=== PATIENT | female | born 1995 | race Caucasian/White ===

== ENCOUNTER 2019-08-06 10:29 | Outpatient (CLI) | payer OTHER, SELFPAY ==
[2019-08-06 10:55] LABS: Hematocrit 39.3 % (35.0-49.0); Hemoglobin 13.7 g/dL (12.0-15.0); Mean Corpuscular HGB Conc 34.9 g/dL (32.0-36.0); Mean Corpuscular Hemoglobin 29.6 pg (27.0-31.0); Mean Corpuscular Volume 84.9 fL (78.0-102.0); Mean Platelet Volume 9.9 fl (9.2-11.8); Platelet Count Result 236 K/mm3 (150-420); Red Blood Count 4.63 M/mm3 (4.20-5.40); Red Cell Distribution Width 12.2 % (11.6-14.4); White Blood Count 6.4 K/mm3 (4.8-10.8)
[2019-08-06 11:29] LABS: Anion Gap 14.6 mmol/L (7-16); Blood Urea Nitrogen 18 mg/dL (7-18); Calcium 9.4 mg/dL (8.5-10.1); Carbon Dioxide 23 mmol/L (21-32); Chloride 105 mmol/L (98-108); Estimated Glomerular Filt Rate 58; Glucose 84 mg/dL (70-99); Osmolality Calculated 288 mOsm/kg (285-295); Potassium 3.6 mmol/L (3.5-5.1); Sodium 139 mmol/L (136-145)
== END 2019-08-06 10:30 | disposition home or self-care (01) ==
LOC: CHSLAB 10:32
PROVIDERS: PCP Family Medicine; Visit Provider Family Medicine
DX: Z00.00 Encounter for general adult medical examination without abnormal findings (principal)
CPT/HCPCS: 36415; 80048; 85027

== ENCOUNTER 2020-11-19 15:43 | Outpatient (CLI) | payer OTHER, SELFPAY ==
[2020-11-19 17:33] LABS: Hepatitis B Surface Antigen Negative (Negative)
[2020-11-19 17:48] LABS: HIV 1/2 Ab P24 Ag Result Negative (Negative)
[2020-11-19 17:51] LABS: Hepatitis C Virus Antibody Negative (Negative)
[2020-11-23 08:26] LABS: Rapid Plasma Reagin Non-Reactive (NonReactive)
[2020-11-25 12:04] LABS: HSV 1 IgM Screen Negative (Negative)
[2020-11-25 12:05] LABS: HSV 2 IgM Screen Negative (Negative)
== END 2020-11-19 15:44 | disposition home or self-care (01) ==
PROVIDERS: PCP Family Medicine; Visit Provider Student in an Organized Health Care Education/Training Program
DX: Z11.3 Encounter for screening for infections with a predominantly sexual mode of transmission (principal)
CPT/HCPCS: 36415; 86592; 86695; 86696; 86703; 86803; 87340; G0432

== ENCOUNTER 2021-01-06 00:41 | Day surgery (SDC) | payer OTHER, SELFPAY ==
[2021-01-03 17:05] VITALS: BMI 25.8
[2021-01-06] VITALS (9 sets, daily range): BP systolic 106–134; BP diastolic 54–92; PULSE 57–81; RESP 14–20; TEMP 36.3–37.3; O2SAT 99–100
--- NOTE | 2021-01-06 07:22 | P.HP_ITS ---
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 Gender identity (if verbalized by the patient): Female Sexual Orientation (if Verbalized by the Patient): Straight or Heterosexual Spiritual care concerns: No Meds Home Medications and Allergies Home Medications Medication Instructions Recorded Confirmed Type ibuprofen 200 mg capsule 200 mg PO Q6H PRN 11/19/20 01/03/21 History valacyclovir 500 mg tablet 500 mg PO DAILY #90 tablet 12/01/20 01/03/21 Rx Allergies Allergy/AdvReac Type Severity Reaction Status Date / Time No Known Allergies Allergy Verified 11/19/20 14:57 Assessment and Plan Assessment and plan (1) Impacted teeth with abnormal position: Code(s): K01.1 - Impacted teeth Status: Acute Assessment and Plan: impacted/uncleansable/painful 1,16,17,32. SR 1,16,17,32
--- NOTE | 2021-01-06 07:22 | WPDHPUPDATE1 ---
History and Physical Update Update Date/Time: 01/06/21 07:22 History and Physical has been reviewed, including an updated exam of the patient. There are NO changes in the patient's condition. Risks, benefits, and alternatives have been discussed and questions answered. Patient agrees to proceed with procedure.
--- NOTE | 2021-01-06 08:10 | WPDANESEPPF ---
Anes - Initial Pre Proc Eval Procedure: Operation Date: 01/06/21 09:30 Proposed Procedures p Extraction Four Impacted [place] Teeth - Sukumar Bolden DMD Date/Time: 01/06/21 08:10 Surgeon: Sukumar Bolden DMD Pre Op Diagnosis: impacted wisdom teeth #1,16,17,32 Patient Data Age: 25 Gender: F Height: 1.65 m Weight: 70.5 kg Allergies Allergy/AdvReac Type Severity Reaction Status Date / Time No Known Allergies Allergy Verified 11/19/20 14:57 Home Medications Medication Instructions Recorded Confirmed Type ibuprofen 200 mg capsule 200 mg PO Q6H PRN 11/19/20 01/03/21 History valacyclovir 500 mg tablet 500 mg PO DAILY #90 tablet 12/01/20 01/03/21 Rx Patient hx anesthesia problems: none Family hx anesthesia problems: none PMFSH Past Medical History Medical History HSV (herpes simplex virus) infection Type 2 Surgical History Surgical History No history of previous surgery Family History Family History Mother Hypothyroidism Anxiety and depression Grandparent Lymph node cancer Social History Social History Smoking status: Never smoker Alcohol intake: current Substance use: never Living arrangements: with family 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 Gender identity (if verbalized by the patient): Female Sexual Orientation (if Verbalized by the Patient): Straight or Heterosexual Spiritual care concerns: No Anes - Eval Final PreProcedure Day of Procedure 01/06/21 08:10 Patient weight: normal Heart: regular rate and rhythm Lungs: clear to auscultation Airway: Mallampati scale class II Neurological: alert and oriented Last oral intake: >/= 8 hours ASA classification: I Emergent: no Anesthetic plan: proceed Anesthesia type and monitoring: general ETT and standard monitoring Informed Consent: The patient's anesthetic plan and its attendant risks and benefits were discussed with the patient/family/POA. Questions were solicited and answers provided to the satisfaction of the patient/family/POA.
[2021-01-06] MEDS: LACTATED RINGERS 1,000 ML 30 ML IV CONT (08:19)
[2021-01-06] MEDS: OXYMETAZOLINE HCL 0.05% NAS 15 ML BTL (*BKC) 1 SPRAY NASAL (09:10)
[2021-01-06] MEDS: LIDOCAINE 2%-EPI (FOR DENTAL BLOCK) 1.7 ML CARTRIDGE INFILTRATE (09:12)
--- NOTE | 2021-01-06 09:36 | PM.OP ---
Procedure Note - Brief Procedure Note - Brief Date of procedure: 01/06/21 Pre-op diagnosis: impacted wisdom teeth #1,16,17,32 Surgeon: Sukumar Bolden DMD Preoperative diagnosis impacted and uncleansable teeth numbers 06/12/2016 and 32 postop diagnosis same procedure surgical removal of teeth #[id number]. Anesthesia general anesthesia and 6cc of 2% lidocaine with 1 100,000 epinephrine. Estimated blood loss 5cc. Complications none. Patient was encountered in the operating room in the care of the Anesthesia Service who induced general anesthetic. patient was draped in the usual manner for an intraoral surgical procedure. Oral cavity suctioned free of debris and throat pack placed. Local anesthetic administered. Fifteen blade was used make a third molar incision area of tooth 1. A full-thickness flap was made to the buccal. Tooth was then removed using a ring forceps technique without complication with minimal ostectomy. Socket curetted free of debris and irrigated copious amounts of sterile saline. Attention was turned to the area of number 16 were 3rd molar incision was made in the full-thickness flap was elevated to the buccal. Bone overlying the tooth was removed removed using elevator and the tooth was removed using elevator and forceps technique without complication. Second curetted free of debris and irrigated copious amount sterile saline. Attention was turned to the area 17. Where a 3rd molar incision was made and a full-thickness flap was elevated to the buckle. Bone overlying the tooth was removed and the tooth was sectioned and removed using alligator forceps technique without complication. Secured free of debris and irrigated with copious amount sterile saline. Gingival tissues reapproximated using 4-0 chromic gut suture in interrupted fashion. Attention was turned to the area of number 32 which was extracted similar fashion. Oral cavity was suctioned free of debris and throat pack removed. Gauze packs placed. Care the patient Transferred to the Anesthesia Service and the patient transferred to recovery room in stable condition.
[2021-01-06] MEDS: oxyCODONE HCL (*CRX) 5 MG TAB IR PO (11:21)
[2021-01-06] MEDS: ONDANSETRON HCL ODT 4 MG TABLET PO (12:02)
--- NOTE | 2021-01-06 14:31 | SUR.PHASEII ---
1115 NO PRESCRIPTIONS GIVEN TO PATIENTS PRIOR TO SURGERY AND NONE LEFT HERE FOR PATIENT. DR. ADAME'S OFFICE CALLED; THEY STATED THEY WOULD SEND IN PRESCRIPTIONS ELECTONICALLY TO OFFICE.
== END 2021-01-06 11:50 | disposition home or self-care (01) ==
PROVIDERS: PCP Family Medicine; Visit Provider Dentist
PROC: (CPT 41899; principal; 2021-01-06 09:30)
DX: K01.1 Impacted teeth (principal); B00.9 Herpesviral infection, unspecified
CPT/HCPCS: 41899 ×4; A9270; J1100; J1940; J2250; J2405; J2704; J7120

== ENCOUNTER 2022-01-02 11:43 | Outpatient (CLI) | payer OTHER, SELFPAY ==
--- NOTE | ~2022-01-02 | US_ITS ---
EXAMINATION: US pelvic complete w TV DATE: 01/02/2022 12:25 INDICATION: IUD assessment Comparison:No prior studies for comparison. TECHNIQUE: Multiple transabdominal and endovaginal sonographic images of the pelvis performed. FINDINGS: The uterus measures 7.6 x 3.8 x 4.2 cm. There is an IUD present in the endometrium in expec april position. The endometrial complex measures 6 mm. The right ovary measures 4.9 x 4.2 x 4.1 cm and the left ovary measures 3.7 x 2.6 x 3.7 cm. There is a right ovarian cyst measuring 4 x 3.9 x 3.5 cm There are small follicles in each ovary. Normal doppl er signal in both ovaries. There is free fluid in the pelvis. There are no abnormal masses seen on either side. IMPRESSION: 1. Right ovarian cyst measuring 4 cm maximum dimension. 2: IUD in expected position in the endometrium. Reviewed, dictated and finalized at location A.
== END 2022-01-02 11:44 | disposition home or self-care (01) ==
PROVIDERS: PCP Family Medicine; Visit Provider Obstetrics & Gynecology
DX: T83.32XA Displacement of intrauterine contraceptive device, initial encounter (principal); T83.9XXA Unspecified complication of genitourinary prosthetic device, implant and graft, initial encounter; N83.201 Unspecified ovarian cyst, right side
CPT/HCPCS: 76830; 76856

== ENCOUNTER 2022-06-29 14:36 | Outpatient (CLI) | payer OTHER, SELFPAY ==
--- NOTE | ~2022-06-29 | US_ITS ---
EXAMINATION: US pelvic complete w TV DATE: 06/29/2022 16:04 INDICATION: Unspecified ovarian cyst, unspecified side. TECHNIQUE: Multiple transabdominal and transvaginal sonographic images of the pelvis were obtained. COMPARISON: Ultrasound 01/02/2022 FINDINGS: TRANSABDOMINAL ULTRASOUND: The uterus measures 8.7 x 3.3 x 5.3 cm. There is physiologic free fluid in the pelvis. TRANSVAGINAL ULTRASOUND: The endometrial complex measures 5 mm in thickness. There is an intrauterine device in expected posit ion. The right ovary measures 3.8 x 2.9 x 2.7 cm. The left ovary measures 2.4 x 2.3 x 3.2 cm. There i s normal vascular flow in the ovaries. IMPRESSION: 1. Normal pelvis. 2. Intrauterine device in expected position. Reviewed, dictated and finalized at location A. [employer] ASSOCIATE
== END 2022-06-29 14:37 | disposition home or self-care (01) ==
LOC: ANHIMG 14:40
PROVIDERS: PCP Family Medicine; Visit Provider Obstetrics & Gynecology
DX: N83.209 Unspecified ovarian cyst, unspecified side (principal)
CPT/HCPCS: 76830; 76856

== ENCOUNTER 2023-06-08 16:34 | Outpatient (CLI) | payer OTHER, SELFPAY ==
[2023-06-08 17:16] LABS: Basophils Percent Auto 0.3 % (0.2-1.2); Eosinophils Absolute Auto 0.2 K/mm3 (0-0.3); Eosinophils Percent Auto 1.6 % (0-4.4); Hematocrit 41.3 % (37.0-47.0); Hemoglobin 13.5 g/dL (12.0-15.0); Immature Granulocyte Absolute 0.04 K/mm3 (0.00-0.031); Immature Granulocyte Percent A 0.4 % (0-0.5); Lymphocytes Absolute Auto 1.84 K/mm3 (0.9-3.2); Lymphocytes Percent Auto 19.4 % (18.3-44.2); Mean Corpuscular HGB Conc 32.7 g/dl (32-36); Mean Corpuscular Hemoglobin 29.7 pg (26-34); Mean Platelet Volume 10.2 fl (7.4-10.4); Monocytes Absolute Auto 0.7 K/mm3 (0.1-0.6); Monocytes Percent Auto 7.4 % (2.6-8.5); Neutrophils Absolute Auto 6.7 K/mm3 (1.3-6.7); Neutrophils Percent Auto 70.9 % (45.5-73.1); Platelet Count Result 227 k/mm3 (150-375); Red Blood Count 4.54 M/mm3 (4.2-5.4); Red Cell Distribution Width 12.7 % (11.5-14.5); White Blood Count 9.5 K/mm3 (4.5-10.0)
[2023-06-08 18:11] LABS: Hepatitis B Surface Antigen Negative (Negative); Rubella IgG Antibody 23.6 IU/ML
[2023-06-08 18:14] LABS: HIV 1/2 Ab P24 Ag Result Negative (Negative)
[2023-06-11 10:06] LABS: Rapid Plasma Reagin Non-Reactive (NonReactive)
[2023-06-12 11:38] LABS: CMV IgG Antibody <0.60 U/mL (<0.60)
[2023-06-19 10:48] LABS: CF Result NEGATIVE (NEGATIVE); SMA 2.0 RISK VARIANT NOT DETECTED
[2023-06-25 14:15] LABS: SMA Results Received Yes
== END 2023-06-08 16:35 | disposition home or self-care (01) ==
LOC: ANHLAB 16:35
PROVIDERS: PCP Family Medicine; Visit Provider Student in an Organized Health Care Education/Training Program
DX: N91.2 Amenorrhea, unspecified (principal)
CPT/HCPCS: 36415; 81220; 81329; 84702; 85025; 86592; 86644; 86703; 86747; 86762; 86787; 86850; 86900; 86901; 87086; 87340; G0432

== ENCOUNTER 2023-06-15 14:46 | Outpatient (CLI) | payer OTHER, SELFPAY ==
--- NOTE | ~2023-06-15 | US_ITS ---
EXAMINATION: US OB <=14 wk fetus w TV DATE: 06/15/2023 15:43 INDICATION: First trimester dating TECHNIQUE: Real-time pelvic transabdominal and transvaginal ultrasound was performed. COMPARISON: None. FINDINGS: The uterus measures 10.3 x 7.3 x 10 cm. There is an intrauterine gestational sac. There is a 2.9 x 2.4 x 0.5 cm hypoechoic area adjacent to the gestational sac A yolk sac is identified. heart motion is identified measuring 168 beats per minute (bpm) by M-mode Doppler. The crown ru mp length measures 2.8 cm, which correlates with an estimated gestational age of 9 weeks and 4 day(s) (+/-) 6 day(s). The right ovary measures 4.8 x 3 x 2.1 cm. The left ovary measures 3.6 x 1.9 x 2.4 cm. There is siddharth l vascular flow in the ovaries. There is no free fluid in the pelvis. IMPRESSION: 1. Live intrauterine with an estimated gestational age of 9 weeks and 4 day(s) (+/-) 6 day( s) and an estimated delivery date of 01/14/2024. 2. Subchorionic hematoma. Reviewed, dictated and finalized at location F. [employer] IMPRESSION: 1. Live intrauterine with an estimated gestational age of 9 weeks and 4 day(s) (+/-) 6 day(s) and an estimated delivery date of 01/14/2024. 2. Subchorionic hematoma.
== END 2023-06-15 14:47 | disposition home or self-care (01) ==
PROVIDERS: PCP Family Medicine; Visit Provider Student in an Organized Health Care Education/Training Program
DX: N91.2 Amenorrhea, unspecified (principal)
CPT/HCPCS: 76801; 76817

== ENCOUNTER 2023-08-21 16:18 | Outpatient (CLI) | payer OTHER, SELFPAY ==
--- NOTE | ~2023-08-21 | US_ITS ---
EXAMINATION: US OB /maternal detail DATE: 08/21/2023 17:21 INDICATION: Abdominal swelling TECHNIQUE: Multiple obstetric sonographic images performed. FINDINGS: Ultrasound dated 06/25/2023. There is a single living fetus in vertex presentation. The placenta is posterior without placenta pr evia. Amniotic fluid volume is normal. cardiac activity and movement is noted with a heart rate of 144 beats per minute. The following anatomy was identified as normal: 4 chamber heart 3 vessel cord cord insertion kidneys urinary bladder stomach spine diaphragm ventricles cisterna magna cerebellum The following biometric data were obtained: BPD: 45mm corresponds to gestational age 19 weeks 4 days. Head circumference: 175 mm corresponds to gestational age 20 weeks 0 days. Abdominal circumference: 136 mm corresponds to gestational age 19 weeks 1 days. Femur length: 33 mm corresponds to gestational age 20 weeks 3 days. Head circumference to abdominal circumference ratio: 1.28 (normal range for expected gestational age is 1.08-1.26). Estimated weight: 309 grams +/- 46 grams using Hadlock method. IMPRESSION: 1: Single living intrauterine with an estimated gestational age of 19weeks 1days by initial ultrasound measurements, with an EDC of 01/14/2024 in vertex presentation. 2. Normal survey. Reviewed, dictated and finalized at location B. IMPRESSION: 1: Single living intrauterine with an estimated gestational age of 19 weeks 1days by initial ultrasound measurements, with an EDC of 01/14/2024 in rob gina presentation. 2. Normal survey.
== END 2023-08-21 16:19 | disposition home or self-care (01) ==
LOC: ANHIMG 16:19
PROVIDERS: PCP Family Medicine; Visit Provider Obstetrics & Gynecology
DX: Z34.92 Encounter for supervision of normal pregnancy, unspecified, second trimester (principal); Z3A.19 19 weeks gestation of pregnancy
CPT/HCPCS: 76805

== ENCOUNTER 2023-10-19 10:17 | Outpatient (CLI) | payer OTHER, SELFPAY ==
[2023-10-19 11:36] LABS: Basophils Percent Auto 0.2 % (0.2-1.2); Eosinophils Absolute Auto 0.1 K/mm3 (0-0.3); Eosinophils Percent Auto 0.5 % (0-4.4); Hemoglobin 12.5 g/dL (12.0-15.0); Immature Granulocyte Absolute 0.11 K/mm3 (0.00-0.031); Lymphocytes Absolute Auto 1.14 K/mm3 (0.9-3.2); Lymphocytes Percent Auto 10.3 % (18.3-44.2); Mean Corpuscular HGB Conc 33.8 g/dl (32-36); Mean Corpuscular Hemoglobin 32.1 pg (26-34); Mean Corpuscular Volume 94.9 fl (80-100); Monocytes Absolute Auto 0.6 K/mm3 (0.1-0.6); Monocytes Percent Auto 5.1 % (2.6-8.5); Neutrophils Absolute Auto 9.2 K/mm3 (1.3-6.7); Neutrophils Percent Auto 82.9 % (45.5-73.1); Platelet Count Result 180 k/mm3 (150-375); Red Cell Distribution Width 12.5 % (11.5-14.5); White Blood Count 11.1 K/mm3 (4.5-10.0)
[2023-10-19 11:53] LABS: Glucose 1 Hour PP 50gm Dose 99 mg/dL
[2023-10-19 12:28] LABS: HIV 1/2 Ab P24 Ag Result Negative (Negative)
== END 2023-10-19 10:18 | disposition home or self-care (01) ==
PROVIDERS: PCP Family Medicine; Visit Provider Obstetrics & Gynecology
DX: Z34.90 Encounter for supervision of normal pregnancy, unspecified, unspecified trimester (principal)
CPT/HCPCS: 36415; 82947; 85025; 86703; G0432

== ENCOUNTER 2023-11-12 16:46 | Outpatient (CLI) | payer OTHER, SELFPAY ==
[2023-11-12 17:29] LABS: Appearance Urine Clear (Clear); Bacteria Urine 3+ /hpf; Bilirubin Urine Negative (Negative); Blood Urine Negative (Negative); Color Urine Yellow (Yellow); Glucose Urine UA Negative (Negative); Ketones Urine Negative (Negative); Leukocyte Esterase Ur 1+ LEU/UL (Negative); Nitrate Urine Negative (Negative); Non Pathogenic Casts 0-2; Protein Urine Negative (Negative); RBC Urine 0-2 /hpf (0-2); Specific Grav Ur 1.022 (1.001-1.035); Squamous Epithelial Cell Urine Few /hpf (Few)
[2023-11-12 17:36] LABS: Add Urine Microscopic? YES
== END 2023-11-12 17:52 | disposition home or self-care (01) ==
PROVIDERS: PCP Family Medicine; Visit Provider Obstetrics & Gynecology
DX: Z34.90 Encounter for supervision of normal pregnancy, unspecified, unspecified trimester (principal); Z3A.00 Weeks of gestation of pregnancy not specified
CPT/HCPCS: 81001; 87086; 87088

== ENCOUNTER 2023-12-19 13:58 | Outpatient (CLI) | payer OTHER, SELFPAY ==
--- NOTE | ~2023-12-19 | US_ITS ---
EXAMINATION: US OB follow up DATE: 12/19/2023 14:31 INDICATION: Encounter for supervision of normal during third trimester TECHNIQUE: Real-time ultrasound of the pelvis was performed. The interpreting radiologist was not pre sent for the study. COMPARISON: None. FINDINGS: There is a single living fetus in vertex presentation. The placenta is on the maternal left and not low-lying. heart rate is 124 beats per minute (bpm). The amniotic fluid index is 14.4 cm, whic h is normal (5th%-95%: 7.7-24.9 cm at 36 weeks estimated gestational age). The following biometric data were obtained: BPD: 8.8 cm -> 35 weeks 4 days Head circumference: 34.5 cm -> 39 weeks 6 days Abdominal circumference: 32.4 cm -> 36 weeks 2 days Femur length: 7.1 cm -> 36 weeks 4 days These measurements are concordant. Head circumference to abdominal circumference ratio: 1.06 (normal range 0.92-1.05). Estimated weight: 2995 g (+/-) 449 g or 6 lbs. 10 oz. (+/-) 16 oz. IMPRESSION: 1. Single living fetus in vertex presentation with heart rate of bpm. 2. Normal amniotic fluid index of 14.4 cm. 3. Estimated weight is 63rd percentile by Hadlock criteria when 01/14/2024 is used as the estima april date of delivery (OMA). Please correlate with clinical information or earlier ultrasounds for mos t accurate OMA. Reviewed, dictated and finalized at location A. IMPRESSION: 1. Single living fetus in vertex presentation with heart rate of bpm. 2. Normal amniotic fluid index of 14.4 cm. 3. Estimated weight is 63rd percentile by Hadlock criteria when 01/14/2024 is used as the estimated date of delivery (OMA). Please correlate with clinica l information or earlier ultrasounds for most accurate OMA.
== END 2023-12-19 13:59 | disposition home or self-care (01) ==
LOC: ANHIMG 14:01
PROVIDERS: PCP Family Medicine; Visit Provider Obstetrics & Gynecology
DX: Z34.90 Encounter for supervision of normal pregnancy, unspecified, unspecified trimester (principal); Z3A.00 Weeks of gestation of pregnancy not specified
CPT/HCPCS: 76816

== ENCOUNTER 2023-12-19 16:58 | Outpatient (CLI) | payer OTHER, SELFPAY ==
[2023-12-19 17:30] VITALS: BP 135/75; PULSE 81
[2023-12-19 17:35] LABS: Basophils Percent Auto 0.3 % (0.2-1.2); Eosinophils Absolute Auto 0.1 K/mm3 (0-0.3); Eosinophils Percent Auto 0.9 % (0-4.4); Hematocrit 38.1 % (37.0-47.0); Hemoglobin 12.9 g/dL (12.0-15.0); Immature Granulocyte Absolute 0.12 K/mm3 (0.00-0.031); Immature Granulocyte Percent A 1.1 % (0-0.5); Lymphocytes Absolute Auto 1.49 K/mm3 (0.9-3.2); Lymphocytes Percent Auto 13.1 % (18.3-44.2); Mean Corpuscular HGB Conc 33.9 g/dl (32-36); Mean Corpuscular Hemoglobin 32.3 pg (26-34); Mean Corpuscular Volume 95.3 fl (80-100); Mean Platelet Volume 10.4 fl (7.4-10.4); Monocytes Absolute Auto 0.8 K/mm3 (0.1-0.6); Monocytes Percent Auto 6.8 % (2.6-8.5); Neutrophils Absolute Auto 8.9 K/mm3 (1.3-6.7); Neutrophils Percent Auto 77.8 % (45.5-73.1); Platelet Count Result 185 k/mm3 (150-375); Red Cell Distribution Width 12.8 % (11.5-14.5); White Blood Count 11.4 K/mm3 (4.5-10.0)
[2023-12-19 17:40] LABS: Appearance Urine Clear (Clear); Bilirubin Urine Negative (Negative); Blood Urine Negative (Negative); Color Urine Yellow (Yellow); Glucose Urine UA Negative (Negative); Ketones Urine Negative (Negative); Leukocyte Esterase Ur Negative LEU/UL (Negative); Nitrate Urine Negative (Negative); Protein Urine Negative (Negative); Specific Grav Ur 1.015 (1.001-1.035); Urobilinogen Urine 0.2 mg/dL (<2.0)
[2023-12-19 17:45] VITALS: BP 135/70; PULSE 73
[2023-12-19 17:46] LABS: Alanine Aminotransferase 23 U/L (6-35); Albumin Level 3.6 g/dL (3.5-5.1); Alkaline Phosphatase 100 U/L (38-126); Anion Gap 9 mmol/L (4-12); Aspartate Amino Transferase 30 U/L (14-36); Bilirubin,Total 0.4 mg/dL (0.2-1.3); Blood Urea Nitrogen 8 mg/dL (7-17); Calcium 8.9 mg/dL (8.4-10.2); Carbon Dioxide 22 mmol/L (22-30); Chloride 104 mmol/L (98-107); Estimated Glomerular Filt Rate > 60; Glucose 85 mg/dL (65-110); Potassium 3.4 mmol/L (3.4-5.0); Sodium 135 mmol/L (137-145); Uric Acid 3.3 mg/dL (2.5-7.5)
[2023-12-19 17:47] LABS: Creatinine Urine 112.5 mg/dL; Total Protein Urine Random 6 mg/dL; Ur Ttl Prot Creatinine Ratio 0.05 mg/mg (0-0.20)
[2023-12-19 17:58] LABS: Add Urine Microscopic? NO
[2023-12-19 18:05] VITALS: BP 135/70; PULSE 77; BMI 34.4
== END 2023-12-19 18:05 | disposition home or self-care (01) ==
LOC: ANHOBOP 17:04 → ANHLDR 17:06
PROVIDERS: PCP Family Medicine; Visit Provider Obstetrics & Gynecology
DX: O13.9 Gestational [pregnancy-induced] hypertension without significant proteinuria, unspecified trimester (principal); Z3A.00 Weeks of gestation of pregnancy not specified
CPT/HCPCS: 36415; 59025; 76816; 80053; 81003; 82570; 84156; 84550; 85025; 99199

== ENCOUNTER 2024-01-13 16:50 | Inpatient (IN) | payer OTHER, SELFPAY ==
[2024-01-13] VITALS (16 sets, daily range): BP systolic 112–167; BP diastolic 56–95; PULSE 70–90; TEMP 36.9; BMI 35.5
--- NOTE | 2024-01-13 17:36 | LDADM ---
This patient, Barbara Chen, was admitted to Labor/Delivery/Recovery 108 on 01/13/24 at 16:50. Plans for labor, pain management and were discussed with patient. Patient/family oriented to hospital policies and general routines including ID bracelet, bed and alarms, visiting hours, pain management, procedures, bathroom and other care routines, personal items, smoking policy, room service/diet and guest tray routines, infant security routines, and visiting hours. Patient/Family are encouraged to report perceived risks to care and to ask questions if they do not understand what they are told or what they should do. See OBIX for further documentation.
[2024-01-13 17:43] LABS: Basophils Percent Auto 0.3 % (0.2-1.2); Eosinophils Absolute Auto 0.1 K/mm3 (0-0.3); Eosinophils Percent Auto 0.9 % (0-4.4); Hemoglobin 13.4 g/dL (12.0-15.0); Immature Granulocyte Absolute 0.09 K/mm3 (0.00-0.031); Immature Granulocyte Percent A 0.9 % (0-0.5); Lymphocytes Absolute Auto 1.34 K/mm3 (0.9-3.2); Lymphocytes Percent Auto 12.8 % (18.3-44.2); Mean Corpuscular HGB Conc 35.3 g/dl (32-36); Mean Corpuscular Hemoglobin 32.9 pg (26-34); Mean Corpuscular Volume 93.4 fl (80-100); Mean Platelet Volume 10.8 fl (7.4-10.4); Monocytes Absolute Auto 0.7 K/mm3 (0.1-0.6); Monocytes Percent Auto 6.4 % (2.6-8.5); Neutrophils Absolute Auto 8.3 K/mm3 (1.3-6.7); Neutrophils Percent Auto 78.7 % (45.5-73.1); Platelet Count Result 189 k/mm3 (150-375); Red Blood Count 4.07 M/mm3 (4.2-5.4); Red Cell Distribution Width 13.2 % (11.5-14.5); White Blood Count 10.5 K/mm3 (4.5-10.0)
[2024-01-13] MEDS: DINOPROSTONE 10 MG VAG INSERT VAGINAL (17:48)
[2024-01-13 18:18] LABS: HIV 1/2 Ab P24 Ag Result Negative (Negative)
[2024-01-13 18:52] LABS: Rapid Plasma Reagin Non-Reactive (NonReactive)
[2024-01-13] MEDS: ZOLPIDEM TARTRATE (*CRX) 5 MG TABLET PO (23:12)
[2024-01-14] VITALS (198 sets, daily range): BP systolic 94–145; BP diastolic 45–107; PULSE 33–159; RESP 16–18; TEMP 36.6–37.7; O2SAT 66–100
[2024-01-14] MEDS: ACETAMINOPHEN 500 MG TABLET 1000 MG PO (02:31)
[2024-01-14] MEDS: fentaNYL CITRATE INJ (*CRX) 100 MCG/2 ML VIAL 50 MCG IV PUSH (07:15)
--- NOTE | 2024-01-14 07:36 | PM.IMHP ---
H&P: HPI History of Present Illness Date/Time: 01/14/24 07:18 Chief Complaint: Induction of labor Narrative: Barbara is a 28yo @ 40.0wks who was admitted last night for elective IOL. She reports good movement. She denies VB or LOF. She has had regular care. Her is complicated: - HSV on full dose ppx - 9wk DANY; no further bleeding - Mild range BP x1 @ 36wks; PIH w/u negative Review of Systems Constitutional: Constitutional: Denies chills, Denies fever(s) and Denies headache(s) Eyes: Eyes: Denies change in vision ENT: Denies headache(s) Cardiovascular: Cardiovascular: Denies chest pain and Denies dyspnea Respiratory: Respiratory: Denies dyspnea Genitourinary: Genitourinary: Denies abnormal vaginal bleeding and Denies vaginal discharge Neurologic: Denies headache(s) Psychiatric: Psychiatric: Denies anxiety and Denies depression [facility] Past Medical History Medical History Encounter for insertion of intrauterine contraceptive device (IUD) 01/07/2021 HSV (herpes simplex virus) infection Type 2 Ovarian cyst Surgical History Surgical History No history of previous surgery [place] teeth removed Family History Family History Mother Hypothyroidism Anxiety and depression Grandparent Lymph node cancer Social History Social History Smoking status: Never smoker Alcohol intake: current Substance use: never Do You Feel Safe in your Home?: Yes Lack of Transportation: No Lack of Food: Never True Current Housing: I Do Not Have Housing Concerned About Future Housing: No Difficulty Paying Gas/Electric Bills: No Difficulty Paying for Meds: No Currently Unemployed: No Education: Bachelor's Degree Difficulty w/ Childcare or Family Care: No Living arrangements: with family Occupation/Education: occupation 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[employer] Gender identity (if verbalized by the patient): Female Sexual Orientation (if Verbalized by the Patient): Straight or Heterosexual Spiritual care concerns: No Meds Home Medications and Allergies Home Medications Medication Instructions Recorded Confirmed Type aspirin 81 mg tablet,delayed 81 mg PO DAILY 07/31/23 01/09/24 History release (Adult Low Dose Aspirin) magnesium oxide 400 mg (241.3 mg 400 mg PO DAILY 07/31/23 01/09/24 History magnesium) tablet triamcinolone acetonide 0.1 % 1 applic topical DAILY #80 grams 11/08/23 01/09/24 Rx topical ointment valacyclovir 500 mg tablet 500 mg PO BID 90 days #180 tabs 12/06/23 01/09/24 Rx Allergies Allergy/AdvReac Type Severity Reaction Status Date / Time povidone-iodine Allergy Intermediate Rash Verified 01/01/24 15:52 [From Betadine] Vital Signs Vital Signs - 24 hr 01/13/24 17:34 01/13/24 17:39 01/13/24 17:45 Pulse Rate 70 72 Blood Pressure 134/73 167/81 H Oxygen Delivery Room Air 01/13/24 18:00 01/13/24 18:15 01/13/24 18:30 Pulse Rate 84 78 77 Blood Pressure 137/82 130/93 H 124/74 Oxygen Delivery 01/13/24 18:45 01/13/24 19:00 01/13/24 19:15 Pulse Rate 75 82 75 Blood Pressure 121/72 125/89 131/81 Oxygen Delivery 01/13/24 19:30 01/13/24 19:45 01/13/24 19:58 Pulse Rate 74 75 80 Blood Pressure 127/78 125/69 135/95 H Oxygen Delivery 01/13/24 20:00 01/13/24 20:30 01/13/24 21:00 Pulse Rate 80 75 82 Blood Pressure 131/82 139/76 129/77 Oxygen Delivery Exam Const: General: cooperative, healthy appearing, no acute distress and obese Nutritional Appearance: obese Orientation/consciousness: patient oriented x3 Resp: Effort & Inspection: normal respiratory effort Cardio: Rate: regular rate GI: GI Palp: No abdominal tenderness : Other: FHT's: 130
[2024-01-14] MEDS: LACTATED RINGERS 1,000 ML 125 ML IV CONT ×3 (08:12→19:22)
[2024-01-14] MEDS: OXYTOCIN 30 UNITS/NS 500 ML 30 UNITS/500 ML BAG 6 UNITS IV CONT (08:13)
--- NOTE | 2024-01-14 09:50 | WPDANESEPP ---
Anes - Eval Pre Procedure Procedure: Labor epidural Date/Time: 01/14/24 09:50 Surgeon: Shravan Preop Diagnosis: Pain during labor Pre Op Diagnosis: IOL Patient Data Age: 28 Gender: F Height: 1.63 m Weight: 94 kg Last Vital Signs Temp 36.6 C 01/14/24 08:16 Pulse 80 01/14/24 08:16 Resp 18 01/14/24 08:16 BP 125/75 01/14/24 08:16 O2 Del Method Room Air 01/13/24 17:34 Allergies Allergy/AdvReac Type Severity Reaction Status Date / Time povidone-iodine Allergy Intermediate Rash Verified 01/01/24 15:52 [From Betadine] Home Medications Medication Instructions Recorded Confirmed Type aspirin 81 mg tablet,delayed 81 mg PO DAILY 07/31/23 01/09/24 History release (Adult Low Dose Aspirin) magnesium oxide 400 mg (241.3 mg 400 mg PO DAILY 07/31/23 01/09/24 History magnesium) tablet triamcinolone acetonide 0.1 % 1 applic topical DAILY #80 grams 11/08/23 01/09/24 Rx topical ointment valacyclovir 500 mg tablet 500 mg PO BID 90 days #180 tabs 12/06/23 01/09/24 Rx Laboratory Tests 01/13/24 17:23 WBC 10.5 H K/mm3 (4.5-10.0) RBC 4.07 L M/mm3 (4.2-5.4) Hgb 13.4 g/dL (12.0-15.0) Hct 38.0 % (37.0-47.0) MCV 93.4 fl (80-100) MCH 32.9 pg (26-34) MCHC 35.3 g/dl (32-36) RDW 13.2 % (11.5-14.5) Plt Count 189 k/mm3 (150-375) MPV 10.8 H fl (7.4-10.4) Immature Gran % (Auto) 0.9 H % (0-0.5) Neut % (Auto) 78.7 H % (45.5-73.1) Lymph % (Auto) 12.8 L % (18.3-44.2) Branch % (Auto) 6.4 % (2.6-8.5) Eos % (Auto) 0.9 % (0-4.4) Baso % (Auto) 0.3 % (0.2-1.2) Lymph # (Auto) 1.34 K/mm3 (0.9-3.2) Branch # (Auto) 0.7 H K/mm3 (0.1-0.6) Eos # (Auto) 0.1 K/mm3 (0-0.3) Baso # (Auto) 0.0 K/mm3 (0.0-0.1) Abs Immat Gran (auto) 0.09 H K/mm3 (0.00-0.031) Absolute Neuts (auto) 8.3 H K/mm3 (1.3-6.7) Absolute Nucleated RBC 0.000 K/mm3 (0.0-0.012) Nucleated RBC % 0.0 % (0.0-0.2) RPR Non-reactive (NonReactive) HIV 1&2 Ab/P24 Ag 4thGn Negative (Negative) Blood Type B Positive Antibody Screen Negative Patient hx anesthesia problems: none Family hx anesthesia problems: none Results Review: All pre-operative results and documents have been reviewed as part of the pre-operative evaluation. [facility] Past Medical History Medical History Encounter for insertion of intrauterine contraceptive device (IUD) 01/07/2021 HSV (herpes simplex virus) infection Type 2 Ovarian cyst Surgical History Surgical History No history of previous surgery [place] teeth removed Family History Family History Mother Hypothyroidism Anxiety and depression Grandparent Lymph node cancer Social History Social History Smoking status: Never smoker Alcohol intake: current Substance use: never Do You Feel Safe in your Home?: Yes Lack of Transportation: No Lack of Food: Never True Current Housing: I Do Not Have Housing Concerned About Future Housing: No Difficulty Paying Gas/Electric Bills: No Difficulty Paying for Meds: No Currently Unemployed: No Education: Bachelor's Degree Difficulty w/ Childcare or Family Care: No Living arrangements: with family Occupation/Education: occupation 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L&D Gender identity (if verbalized by the patient): Female Sexual Orientation (if Verbalized by the Patient): Straight or Heterosexual Spiritual care concerns: No Exam Day of Procedure 01/14/24 09:50 Patient weight: overweight Heart: regular rate and rhythm Lungs: clear to auscultation Airway: Mallampati scale Neurological: alert and oriented
[2024-01-14] MEDS: ONDANSETRON INJ 4 MG/2 ML VIAL IV PUSH (14:35)
--- NOTE | 2024-01-14 16:39 | PM.OBPNLAB ---
Pain Control Date/time seen: 01/14/24 16:39 Pain control: epidural Pelvic Exam Dilation (cm): 5 (-6) Effacement (%): 90 station: -2 Amniotic membrane status: Ruptured Contractions Monitor mode: Internal Contraction frequency: 2 Status status: Category l Assessment and Plan Pitocin rate (mU/min): 24 Plan: continuous present management
[2024-01-14] MEDS: diphenhydrAMINE HCl INJ 50 MG/ML VIAL 25 MG IV PUSH (19:35)
[2024-01-14] MEDS: OXYTOCIN 30 UNITS/NS 500 ML 30 UNITS/500 ML BAG 125 UNITS IV CONT (21:50)
--- NOTE | 2024-01-14 22:34 | P.PCNOB_ITS ---
OB - Vaginal Delivery Note Procedure Delivery date: 01/14/24 Events: Elective Induction of Labor Induction method: Per Cervidil Protocol Delivery augmentation: Rupture of Membranes and Pitocin Delivery monitor: External FHT and Internal Uterine Route of delivery: Laceration Description: Periurethral (right) and Perineal - 2nd Degree Delivery repair: vicryl Specimen: Yes (placenta (succenturiate lobe noted)) Quantitative Blood Loss (ml): 400 Anesthesia type: Epidural Disposition: Floor Complications: No immediate complications [place] Baby Date of : 01/14/24 Time of : 21:36 Gestational Age by Date: 40 Infant gender: Female Weight (pounds): 9 Weight (ounces): 1 presentation: vertex position: Right Occiput Anterior (/compound with right hand by face) Placenta delivery description: Expressed Cord Vessel Description: 3 Vessels score one minute: 8 score five minutes: 9 Narrative: Barbara progressed to complete dilation with strong desire to push. She pushed for approximately 50 minutes with good maternal effort. She delivered head over intact perineum. Compound presentation with the right hand by the face was noted. She easily delivered the 's shoulders and body without complication. The was immediately placed skin to skin and she had spontaneous cry. Delayed cord clamping was performed. The umbilical cord was then doubly clamped and cut. A segment of cord was collected for cord gases. With Pitocin running and gentle downward traction on the cord, the placenta delivered without complication. Bimanual massage was performed and good uterine tone with minimal bleeding was noted. She was examined and a second-degree perineal laceration as well as a right periurethral laceration were identified. The second-degree perineal laceration was repaired in the normal fashion using 2-0 Vicryl and good hemostasis was noted. The right periurethral laceration was repaired using 3-0 Vicryl and good hemostasis was noted. Bimanual massage was once again performed and good uterine tone with minimal bleeding was noted. Sponge, lap, instrument, and needle counts were correct at the end the procedure. Mom and baby were left bonding in the birthing suite in stable condition.
[2024-01-14] MEDS: HYDROcodone/acetaminophen (*CRX) 5-325 MG TABLET 1 TAB PO (23:42)
--- NOTE | 2024-01-15 01:02 | OBPPTRN ---
Patient transferred to post room #277 via wheelchair @ 0102. Support person present. Oriented to unit, room, information board, rooming in, admission packet and security measures. Patient verbalizes understanding.
[2024-01-15 01:08] VITALS: BP 117/72; PULSE 92; RESP 18; TEMP 37.5; O2SAT 98
[2024-01-15] MEDS: IBUPROFEN 600 MG TABLET PO ×4 (01:24→22:29)
[2024-01-15] MEDS: DIBUCAINE 1% OINTMENT 30 GM TUBE 1 APPLIC TOPICAL (01:25)
[2024-01-15 04:11] VITALS: BP 118/56; PULSE 71; RESP 16; TEMP 36.3; O2SAT 99
[2024-01-15] MEDS: ACETAMINOPHEN 325 MG TABLET 650 MG PO ×3 (04:31→17:09)
[2024-01-15 04:55] LABS: Hematocrit 37.2 % (37.0-47.0); Mean Corpuscular HGB Conc 34.9 g/dl (32-36); Mean Corpuscular Hemoglobin 32.9 pg (26-34); Mean Corpuscular Volume 94.2 fl (80-100); Mean Platelet Volume 10.9 fl (7.4-10.4); Platelet Count Result 167 k/mm3 (150-375); Red Blood Count 3.95 M/mm3 (4.2-5.4); Red Cell Distribution Width 13.2 % (11.5-14.5); White Blood Count 20.3 K/mm3 (4.5-10.0)
--- NOTE | 2024-01-15 06:39 | PM.OBPNVD ---
OB - PN: Subj Subjective Date/time seen: 01/15/24 06:39 Narrative: PPD#1 Barbara reports doing well today. Her bleeding is [employer]. Her pain is present (vaginal/rectal) but controlled. She is tolerating regular diet, voiding, passing gas, and ambulating without issues. She is breast feeding. OB - PN: Obj Data Labs 01/15/24 04:26 Labs: Laboratory Results - last 24 hr 01/15/24 04:26 WBC 20.3 H RBC 3.95 L Hgb 13.0 Hct 37.2 MCV 94.2 MCH 32.9 MCHC 34.9 RDW 13.2 Plt Count 167 MPV 10.9 H OB - PN A/P Assessment and Plan (1) Normal vaginal delivery of first : Code(s): O80 - Encounter for full-term uncomplicated delivery Status: Acute Plan day: 1 Plan: routine care Comments: - PO pain meds - Regular diet - Ambulation and hydration encouraged - Continue putting baby to breast q2-3hr Time Spent With Patient Time: Total time spent is greater than 50% in coordination of care (as documented) at patient's floor/unit and/or counseling patient: Review of Systems Constitutional: Constitutional: Denies chills, Denies fever(s) and Denies headache(s) Eyes: Eyes: Denies change in vision ENT: Denies dizziness and Denies headache(s) Cardiovascular: Cardiovascular: Denies chest pain, Denies palpitations and Denies dyspnea Respiratory: Respiratory: Denies cough and Denies dyspnea Gastrointestinal: Gastrointestinal: Denies nausea and Denies vomiting Neurologic: Denies dizziness and Denies headache(s) Endocrine: Endocrine: Denies palpitations Exam Const: General: cooperative, comfortable and no acute distress Orientation/consciousness: patient oriented x3 Resp: Effort & Inspection: normal respiratory effort Auscultation: clear to auscultation bilaterally Cardio: Rate: regular rate GI: Inspection: non-distended GI Palp: No abdominal tenderness and Yes Soft to palpation Auscultation: normal bowel sounds : Other: fundus firm Skin: General skin exam: normal color Neuro: General: patient oriented x3 Extrem: General: normal to inspection Psych: Appearance: grossly normal Affect: normal affect Attitude: cooperative
[2024-01-15 07:40] VITALS: BP 129/64; PULSE 61; RESP 16; TEMP 36.5; O2SAT 100
[2024-01-15] MEDS: MULTIVIT/MIN/PREN/FOL AC/IRON TABLET 1 TAB PO (07:43)
[2024-01-15] MEDS: DOCUSATE SODIUM 100 MG CAPSULE PO ×2 (07:43→17:09)
--- NOTE | 2024-01-15 10:36 | WPDANLDPN2 ---
Anes-Prog Note L&D Date/Time: 01/15/24 10:36 Comfortable throughout: labor and delivery Neuraxial method: epidural Neuro status: Neuro function grossly intact. Cardiovascular status: normal Respiratory status: normal Airway patency: baseline Mental status: baseline Post-Op hydration status: normal Vital Signs: Last Vital Signs Temp 36.5 C 01/15/24 07:40 Pulse 61 01/15/24 07:40 Resp 16 01/15/24 07:40 BP 129/64 01/15/24 07:40 Pulse Ox 100 01/15/24 07:40 O2 Del Method Room Air 01/15/24 07:45 Pain score (VAS): 10 I/O: Intake & Output 01/14/24 01/15/24 01/15/24 23:59 07:59 15:59 Intake Total 1000 240 Output Total 400 Balance 600 240 Post-procedural complaints: none Patient feedback: Patient satisfied with anesthetic care.
[2024-01-15 12:35] VITALS: BP 122/72; PULSE 63; RESP 16; TEMP 36.3; O2SAT 100
--- NOTE | 2024-01-15 16:59 | PC.NURSE ---
1630. Met with patient to assess and discuss needs related to feeding. Mother states it is her intention to exclusively breastfeed and she reports things are going well so far and baby is latching frequently.Infant is sleeping at this time, but mother encouraged to call for latch help or questions for babies next feed. Encouraged mother to breastfeed every 2-3 hours, watching for early feeding cues. If is sleepy, unwrap and place baby skin to skin. Discussed signs that is effectively , i.e. sufficient voids and stools, jaundice within normal limits, <10% weight loss from . Mother educated on milk production, supply and demand, and expectations for in the immediate period. Encouraged feeding on demand and feeding durations of 15 minutes or greater. Discussed breast/nipple care with good hand hygiene, signs of a correct latch, listening for infant swallows and documenting feedings on the feeding sheet. Mother instructed to call for assistance if will not feed every 3 hours, if there is discomfort with , or if mother has any other questions or concerns. resources provided including the Mom and Baby Guide. Mother verbalized understanding. Updated patient?s primary RN with education provided.
[2024-01-15 20:23] VITALS: BP 122/72; PULSE 68; RESP 18; TEMP 36.7; O2SAT 98
[2024-01-16] MEDS: ACETAMINOPHEN 325 MG TABLET 650 MG PO ×2 (02:24→09:07)
--- NOTE | 2024-01-16 07:15 | PM.OBDSVD ---
DS: Admitting Diagnosis Discharge Date 01/16/24 Admitting Diagnosis Elective induction of labor DS: Discharge Diagnosis Discharge Diagnosis (1) Normal vaginal delivery of first : Code(s): O80 - Encounter for full-term uncomplicated delivery Status: Acute OB - DS: Summary OB Procedures : Ultrasound OB Procedures Intrapartum: Spontaneous Vag Delivery OB Procedures: : None Peripartum Data Infant Delivery Method: Natural Vaginal Laceration Description: Periurethral (right) and Perineal - 2nd Degree complications: none 1: Gender: Female Disposition of : home Status at Discharge Functional status at discharge: independent ambulation Overall status at discharge: patient is back to baseline Time Spent with Patient Time attestation: Total time spent providing and/or coordinating discharge services: Exam Const: General: cooperative, healthy appearing, comfortable and no acute distress Nutritional Appearance: obese Orientation/consciousness: patient oriented x3 Resp: Effort & Inspection: normal respiratory effort Auscultation: clear to auscultation bilaterally Cardio: Rate: regular rate GI: Inspection: non-distended GI Palp: No abdominal tenderness and Yes Soft to palpation Auscultation: normal bowel sounds : Other: fundus firm Skin: General skin exam: normal color Neuro: General: patient oriented x3 Extrem: General: normal to inspection Psych: Appearance: grossly normal Affect: normal affect Attitude: cooperative DS: Data Data Completed and Pending Pending studies at discharge: Pending at discharge 01/14/24 21:40 Surgical [PTH] Routine Labs on day of discharge: Labs from last 24 hours 01/15/24 04:26 WBC 20.3 H RBC 3.95 L Hgb 13.0 Hct 37.2 MCV 94.2 MCH 32.9 MCHC 34.9 RDW 13.2 Plt Count 167 MPV 10.9 H Discharge Plan Discharge Attending physician on discharge: Kallie Cheney Discharging Clinician: Kallie Cheney Anticipated Discharge Date/Time: 01/16/24 11:00 Patient Disposition: Home, Self-Care Activity: may shower and pelvic rest Diet: regular Patient Instructions: Vaginal Delivery (DC) Stand Alone Forms: General Discharge Information Follow-up/Referrals: Kallie Cheney MD [Physician] - 4 Weeks Discharge Medications: New acetaminophen 500 mg tablet 1,000 mg PO TID Qty: 60 0RF docusate sodium [Colace] 100 mg capsule 100 mg PO BID Qty: 90 0RF ibuprofen 800 mg tablet 800 mg PO TID Qty: 30 0RF Discontinued triamcinolone acetonide 0.1 % ointment 1 applic topical DAILY Qty: 80 1RF valacyclovir 500 mg tablet 500 mg PO BID 90 Days Qty: 180 1RF aspirin [Adult Low Dose Aspirin] 81 mg tablet,delayed release (DR/EC) 81 mg PO DAILY magnesium oxide 400 mg (241.3 mg magnesium) tablet 400 mg PO DAILY Date of admission: 01/13/24 16:50 Primary Care Provider: Amando Roth Admitting Provider: Kallie Cheney Attending physician on admission: Kallie Cheney Condition: Stable
[2024-01-16] MEDS: IBUPROFEN 600 MG TABLET PO (07:17)
[2024-01-16 07:30] VITALS: BP 126/75; PULSE 61; RESP 16; TEMP 36.6; O2SAT 100
--- NOTE | 2024-01-16 07:35 | PC.NURSE ---
Mother verbalizes she is able to independently latch with appropriate positioning and alignment. She denies any nipple discomfort and is responsively . Infant is currently meeting outcomes for weight, output, jaundice, blood sugar and feeding frequencies of 8-12 times in 24 hours. Mother declines any additional assistance or education at this time. Mother is encouraged to call for assistance if her infant doesn?t latch, pain with latching, questions or concerns. Mother voiced understanding of information shared along with the mom/baby guide for an additional resource. Reported to the Primary RN.
[2024-01-16] MEDS: DOCUSATE SODIUM 100 MG CAPSULE PO (09:07)
[2024-01-16] MEDS: MULTIVIT/MIN/PREN/FOL AC/IRON TABLET 1 TAB PO (09:07)
--- NOTE | 2024-01-16 12:09 | PC.NURSE ---
Patient viewed the discharge video Mother & Baby Care, The First Two Weeks . Patient was given the opportunity and encouraged to ask questions. Patient verbalized understanding of information shared and has been given the mother/baby guide for home reference.
[2024-01-18 09:28] VITALS: BP 134/87; PULSE 78; RESP 18; TEMP 36.9; O2SAT 100
== END 2024-01-16 12:35 | disposition home or self-care (01) | DRG 806 ==
LOC: ANHLDR 16:59 → ANHOB2 01-15 01:10
PROVIDERS: Admitting Provider Obstetrics & Gynecology; PCP Family Medicine; Visit Provider Obstetrics & Gynecology
DX: O32.6XX0 Maternal care for compound presentation, not applicable or unspecified (principal); O98.52 Other viral diseases complicating childbirth; Z37.0 Single live birth; B00.9 Herpesviral infection, unspecified; O70.1 Second degree perineal laceration during delivery; O43.193 Other malformation of placenta, third trimester; Z3A.40 40 weeks gestation of pregnancy
CPT/HCPCS: 36415; 85025; 85027; 86592; 86703; 86850; 86900; 86901; 88307; A9270; G0432; J1200; J2405; J2590; J2795; J3010; J7120